=== PATIENT | female | born 1980 | race American Indian/Alaskan Native ===

== ENCOUNTER 2022-06-05 05:56 | Day surgery (SDC) | payer MEDICAID ==
[2022-06-05] MEDS ORDERED: LACTATED RINGERS 1,000 ML ONE (06:47)
[2022-06-05] MEDS ORDERED: VANCOMYCIN 1,750 MG in SODIUM CHLORIDE 0.9% 500 ML 500 ML IV SCH (07:00)
[2022-06-05] MEDS ORDERED: VANCOMYCIN/NS 1 GM/250 ML 1 GM/250 ML BAG IV NR (07:00)
[2022-06-05] MEDS ORDERED: MIDAZOLAM 2 MG/2 ML INJ ONE (07:14)
[2022-06-05] MEDS ORDERED: dexAMETHasone 20 MG/5 ML VIAL ONE (07:14)
[2022-06-05] MEDS ORDERED: ROCURONIUM 50 MG/5 ML INJ IV ONE (07:14)
[2022-06-05] MEDS ORDERED: propofoL 200 MG/20 ML VIAL IV ONE (07:14)
[2022-06-05] MEDS ORDERED: ONDANSETRON 4 MG/2 ML INJ ONE (07:14)
[2022-06-05] MEDS ORDERED: fentaNYL 100 MCG/2 ML INJ ONE (07:14)
[2022-06-05] MEDS ORDERED: LIDOCAINE (1%) 10 MG/1 ML VIAL 20 ML MDV ONE (07:18)
[2022-06-05] MEDS ORDERED: BUPIVACAINE/PF (0.5%) 5 MG/1 ML 30 ML VIAL INFILTRATI ONE ×2 (07:18→09:02)
[2022-06-05] MEDS: MAGNESIUM OXIDE 400 MG TAB PO NR ×2 (07:30→07:50)
[2022-06-05] MEDS: CELECOXIB 200 MG CAP PO NR ×2 (07:30→07:50)
[2022-06-05] MEDS ORDERED: ONDANSETRON 4 MG/2 ML INJ IV PRN (07:33)
[2022-06-05] MEDS ORDERED: HYDROmorphone 0.5 MG/0.5 ML INJ IV PRN ×2 (07:33→08:00)
[2022-06-05] MEDS ORDERED: ACETAMINOPHEN 500 MG TAB PO NR (07:33)
--- NOTE | 2022-06-05 07:36 | Anesthesia Day of Surgery ---
Anesthesia Day of Surgery - Day of Surgery Patient Examined: Yes Patient H&P Reviewed: Yes Patient is NPO: Yes Beta Blockers: No Moises's Test: N/A
--- NOTE | 2022-06-05 07:38 | Anesthesia Consultation ---
Anesthesia Consult and Med Hx Date of service: 06/05/22 - Airway Anesthetic Teeth Evaluation: Good ROM Head & Neck: Adequate Mental/Hyoid Distance: Adequate Mallampati Class: Class III Intubation Access Assessment: Probably Good - Pulmonary Exam CTA: No - Cardiac Exam Cardiac Exam: No Murmur - Pre-Operative Health Status ASA Pre-Surgery Classification: ASA2 Proposed Anesthetic Plan: General - Pulmonary Hx Smoking: Yes (STOPPED X 1 WEEK ) Hx Asthma: No Hx Respiratory Symptoms: No SOB: No COPD: No Home Oxygen Therapy: No Hx Sleep Apnea: No (BON PRE SCREEN LOW RISK) - Cardiovascular System Hx Hypertension: No - Central Nervous System Hx Seizures: No Hx Psychiatric Problems: No - Gastrointestinal Hx Gastroesophageal Reflux Disease: Yes - Endocrine Hx Renal Disease: No Hx Liver Disease: (FATTY LIVER) Hx Thyroid Disease: No - Hematic Hx Anemia: No - Other Systems Hx Alcohol Use: Yes (OCCAS WINE) Hx Cancer: No Hx Obesity: Yes
[2022-06-05] MEDS ORDERED: CELECOXIB 200 MG CAP ONE (07:45)
[2022-06-05] MEDS ORDERED: LACTATED RINGERS 1,000 ML IV SCH (08:00)
[2022-06-05] MEDS ORDERED: MIDAZOLAM 2 MG/2 ML INJ IV NR (08:00)
[2022-06-05] MEDS ORDERED: LIDOCAINE (1%) 10 MG/1 ML VIAL 20 ML MDV INFILTRATI ONE (09:03)
[2022-06-05] MEDS ORDERED: SODIUM CHLORIDE 0.9% IRR 1,500 ML BOTTLE IR ONE (09:03)
[2022-06-05] MEDS ORDERED: PHENYLEPHRINE 10 MG/1 ML INJ SDV ONE (09:15)
[2022-06-05] MEDS ORDERED: KETOROLAC 30 MG/1 ML INJ ONE (09:53)
--- NOTE | 2022-06-05 09:54 | Short Stay Summary ---
Short Stay Documentation Date of service: 06/05/22 - History Principal diagnosis: abdominal pain, hx of prior abdominal surgery H&P: obtained from office - Allergies and Medications Current Medications: Allergies ampicillin Allergy (Verified 04/03/16 12:35) Rash ciprofloxacin [From Cipro] Allergy (Verified 03/11/15 11:36) Rash ciprofloxacin HCl [From Cipro] Allergy (Verified 03/11/15 11:36) Rash nitrofurantoin [From Macrobid] Allergy (Verified 03/11/15 11:36) Hives nitrofurantoin macrocrystalline [From Macrobid] Allergy (Verified 03/11/15 11:36) Hives Quinolones Allergy (Verified 03/11/15 11:36) Rash Home Medications Medication Instructions Recorded Confirmed Last Taken Type No Known Home Medications [No 05/30/22 05/30/22 Unknown History Reported Home Medications] Active Medications Celecoxib (Celecoxib 200 Mg Cap) 400 mg PO PREOP NR Stop: 06/05/22 12:00 Last Admin: 06/05/22 07:50 Dose: 400 mg Hydromorphone HCl (Hydromorphone 0.5 Mg/0.5 Ml Inj) 0.25 mg IV Q10MIN PRN PRN Reason: Pain, Moderate (4-6) Hydromorphone HCl (Hydromorphone 0.5 Mg/0.5 Ml Inj) 0.5 mg IV Q10MIN PRN PRN Reason: Pain , Severe (7-10) Stop: 06/05/22 20:00 Vancomycin HCl 1,750 mg/ (Sodium Chloride) 535 mls @ 333.333 mls/hr IV PREOP MARIOLA Stop: 06/05/22 19:00 Last Admin: 06/05/22 07:40 Dose: 333.333 mls/hr Lactated Ringer's (Lactated Ringers) 1,000 mls @ 125 mls/hr IV DIRECT MARIOLA Last Admin: 06/05/22 07:10 Dose: 125 mls/hr Magnesium Oxide (Magnesium Oxide 400 Mg Tab) 400 mg PO ONCE NR Stop: 06/05/22 13:00 Last Admin: 06/05/22 07:50 Dose: 400 mg Methocarbamol (Methocarbamol 750 Mg Tab) 1,500 mg PO ONCE NR Stop: 06/05/22 13:00 Last Admin: 06/05/22 07:50 Dose: 1,500 mg Midazolam HCl (Midazolam 2 Mg/2 Ml Inj) 2 mg IV PREOP NR Stop: 06/05/22 23:59 Ondansetron HCl (Ondansetron 4 Mg/2 Ml Inj) 4 mg IV ONCE PRN PRN Reason: Nausea And Vomiting Stop: 06/05/22 13:00 - Brief post op/procedure progress note Date of procedure: 06/05/22 Pre-op diagnosis: abdominal pain Post-op diagnosis: same Procedure: robotic assisted lap diagnostic laparoscopy, lysis of adhesions. Anesthesia: GETA, local Findings: 1. Dense adhesions from the omentum to the anterior abdominal wall at the site of umbilical mesh 2. No hernias 3. Unremarkable small and large bowel except for moderate constipation 4. R ovarian cyst. L ovary and b/l fallopian tubes, uterus unremarkable Surgeon: SUHAS GARLAND Biological Science Technician Fish: SHAHEEN ALEGRIA Estimated blood loss: minimal Pathology: none Condition: stable - Hospital course Hospital course: Patient observed in PACU and discharged home in stable condition when criteria met - Disposition Condition at discharge: Good Disposition: 01 HOME / SELF CARE / HOMELESS Short Stay Discharge Plan Activity: other (No heavy lifting greater than 15 pounds for the next 2 weeks) Diet: low fat Wound: open to air, per your surgeon's advice Additional Instructions: Please see printed additional instructions Follow up with: ISIDRO LÓPEZ MD [Primary Care Provider] - 7 Days SUHAS GARLAND DO [Staff Physician] - 14 Days Prescriptions: Ibuprofen [Motrin 800 MG tab] 800 mg PO Q8HR PRN #30 tablet PRN Reason: Pain, Moderate (4-6) HYDROcodone/APAP 5-325 [[place] 5/325] 1 each PO Q6HR PRN #10 tablet PRN Reason: Pain , Severe (7-10)
--- NOTE | 2022-06-05 10:47 | Post Anesthesia Evaluation ---
- Post Anesthesia Evaluation Patient Participated: Yes Airway Patent: Yes Stable Respiratory Function: Yes Nausea/Vomiting: No Temp > 96.8F: Yes Pain Manageable: Yes Adequeate Hydration: Yes Anesthesia Complications: No Block Receding Appropriately: Not Applicable Patient on Ventilator: No
[2022-06-05 12:28] VITALS: BP 142/80
--- NOTE | 2022-06-05 13:48 | Operative Report ---
Operative Report Operative Report: Date of procedure: 06/05/22 Pre-op diagnosis: abdominal pain Post-op diagnosis: same Procedure: robotic assisted lap diagnostic laparoscopy, lysis of adhesions. Anesthesia: GETA, local Findings: 1. Dense adhesions from the omentum to the anterior abdominal wall at the site of umbilical mesh 2. No hernias 3. Unremarkable small and large bowel except for moderate constipation 4. R ovarian cyst. L ovary and b/l fallopian tubes, uterus unremarkable Surgeon: SUHAS GARLAND Truss Maker: SHAHEEN ALEGRIA Estimated blood loss: minimal Pathology: none Condition: stable Hospital course: Patient observed in PACU and discharged home in stable condition when criteria met Condition at discharge: Good Disposition: 01 HOME / SELF CARE / HOMELESS HPI and indication: Patient is a 41-year-old female with a past surgical history of an umbilical hernia repair with mesh performed. The patient has been having right lower quadrant/groin pain for many years. The etiology of the pain is unknown. She was referred to the surgery clinic for evaluation of the hernia. On physical exam and CT scan of the abdomen and pelvis there was no evidence of a groin hernia. There was no recurrence of the umbilical hernia. The patient was offered a diagnostic laparoscopy to rule out adhesion related disease or inguinal hernia not recognized on CT. All risks, benefits, alternatives to surgery were discussed with the patient and questions answered. She elected to proceed with diagnostic laparoscopy. Consent obtained for robotic assisted diagnostic laparoscopy with possible repair of hernia. Procedure in detail: The patient was identified in the preoperative area, taken back to the operating room placed operative table in supine position. After anesthesia was induced a Gregroy catheter was sterilely placed by the circulating nurse. Both arms were tucked and bony prominences padded appropriately. The abdomen was prepped and draped in usual sterile fashion a timeout performed. Local anesthetic was infiltrated to skin at the intended incision site. A manpreet incision in the left upper quadrant at Tipton's point was made through which a Veress needle was inserted. The Veress needle position was confirmed using the saline drop test and the abdomen insufflated to 15 mmHg. Once insufflated a left upper quadrant incision was made through which a 5mm Optiview trocar was placed. The abdomen was inspected and there was no underlying injury to the abdominal structures. The Veress needle was identified and removed. Immediately visible were adhesions from the omentum to the anterior abdominal wall in the midline. A midepigastric 12 mm trocar was then placed along with a 8 mm robotic trocar in the right upper abdomen under direct visualization. The 5 mm left upper quadrant trocar was removed and replaced with a 8 mm robotic trocar under direct visualization. The patient was placed in Trendelenburg. The robot was then docked. A monopolar scissor was placed in arm #1 and a fenestrated bipolar arm #2. The surgeon was then transferred to the console. For started by performing adhesiolysis. The omental adhesions to the anterior abdominal wall were dissected using combination of blunt dissection and sharp dissection with the monopolar scissors. Hemostasis was achieved along the way. The mesh was visible once the adhesions were taken down completely. The mesh was seen to be mostly incorporated with tacks in place and no recurrence of the umbilical hernia. The pelvis was examined and there was no obvious evidence of inguinal hernias bilaterally. The uterus, left ovary and fallopian tube, right fallopian tube are unremarkable. There was a small right ovarian cyst. The small bowel was ran from the ligament of Treitz to the terminal ileum. There was no abnormality seen. The colon was examined and other than moderate constipation, there was no abnormality. The stomach and liver were unremarkable. At this point the robot was undocked and the remainder of the case was performed laparoscopically. A Ray-Ching that was previously placed into the abdomen was removed. Seprafilm was placed through the 12 mm port into the abdomen. The 12 mm port was removed and the fascia closed with a interrupted 0 Vicryl stitch using the Javy Hood device. The remaining ports were removed under direct visualization and the abdomen desufflated. All incisions were once again infiltrated with local anesthetic. The skin was approximated using 4 Monocryl subcuticular stitches and skin glue. At the end of the case all sponge, instrument, sharp counts were correct x2. The Gregory catheter was removed. The patient was awoken from anesthesia, extubated, taken to PACU in stable condition. When the patient was ready to go home, the intraoperative findings were discussed with her and photos reviewed. She is provided with a copy of labeled photos for her follow-up STRAP [employer]ER and GI appointments.
== END 2022-06-05 11:55 | disposition home or self-care (01) ==
LOC: OR 05:56
PROVIDERS: ATTEND Surgery
DX: R10.9 Unspecified abdominal pain (principal); K66.0 Peritoneal adhesions (postprocedural) (postinfection); N83.201 Unspecified ovarian cyst, right side; K21.9 Gastro-esophageal reflux disease without esophagitis; E66.9 Obesity, unspecified; M19.90 Unspecified osteoarthritis, unspecified site; Z88.6 Allergy status to analgesic agent; Z79.899 Other long term (current) drug therapy; Z88.8 Allergy status to other drugs, medicaments and biological substances; Z87.891 Personal history of nicotine dependence; Z72.89 Other problems related to lifestyle; Z98.890 Other specified postprocedural states; Z68.41 Body mass index [BMI] 40.0-44.9, adult
CPT/HCPCS: 49329; 81025; 82962; J1100; J1885; J2250; J2370; J2405; J2704; J3010; J3370; J3490; J7040; J7120; S2900